=== PATIENT | female | born 1950 | race Caucasian/White ===

== ENCOUNTER 2020-08-01 10:44 | Outpatient (CLI) | payer MEDICARE, OTHER, SELFPAY ==
--- NOTE | 2020-08-01 10:53 | MM_ITS ---
WS: [id number] BILATERAL SCREENING MAMMOGRAM WITH RODOLFO DISPLACEMENT VIEWS. CAD PERFORMED. HISTORY: SCREENING COMPARISON: 2018 and 08/27/2010 Bilateral craniocaudal and mediolateral like views are performed. Rodolfo displacement views in CC and MLO projection also performed. Breasts composition: There are scattered areas of fibroglandular density. Implants are heavily calcified. There are additional benign coarse calcifications within each breast. No suspicious mass or calcification identified on the displacement views. MM/[id number] IMPRESSION: BI-RADS: 2-Benign FOLLOW-UP: 1 Year Follow-up
== END 2020-08-01 10:45 | disposition home or self-care (01) ==
LOC: RADSHAW 10:48
PROVIDERS: PCP Nurse Practitioner; Visit Provider Nurse Practitioner
DX: Z12.31 Encounter for screening mammogram for malignant neoplasm of breast (principal)
CPT/HCPCS: 77067

== ENCOUNTER 2023-10-28 07:46 | Emergency (ER) | payer MEDICARE, OTHER, SELFPAY ==
[2023-10-28 07:52] VITALS: BP 155/57; PULSE 67; RESP 18; O2SAT 98; BMI 20.9
--- NOTE | 2023-10-28 07:56 | XR_ITS ---
WS: [id number] Left wrist, 3 views, 10/28/2023 Clinical Data: pain Comparison: None. Findings: There is an impacted fracture of the distal left radius at the diametaphyseal junction. There is slig ht dorsal displacement of the fracture fragment. There is a simple fracture of the ulnar styloid. The carpal bones are intact. There is soft tissue swelling about the fractures. XR/XR wrist LT min 3V* [id number] Impression: 1. Impacted fracture distal left radius 2. Simple fracture left ulnar styloid..
[2023-10-28 07:57] VITALS: BP 155/57; PULSE 67; RESP 18; TEMP 36.4; O2SAT 98
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
[2023-10-28 09:01] VITALS: BP 152/69; PULSE 68; RESP 16; O2SAT 100
--- NOTE | 2023-10-28 14:26 | DCPLANNER ---
messaged ortho for er f/u
== END 2023-10-28 09:02 | disposition home or self-care (01) ==
PROVIDERS: Emergency Provider Family Medicine; PCP Nurse Practitioner
DX: S52.502A Unspecified fracture of the lower end of left radius, initial encounter for closed fracture (principal); S52.612A Displaced fracture of left ulna styloid process, initial encounter for closed fracture; W22.8XXA Striking against or struck by other objects, initial encounter
CPT/HCPCS: 29125; 73110; 99283

== ENCOUNTER → 2023-11-01 14:34 | Outpatient (BNVA) | payer MEDICARE, OTHER, SELFPAY | PROVIDERS: PCP Nurse Practitioner; Visit Provider Orthopaedic Surgery | DX: S52.502A Unspecified fracture of the lower end of left radius, initial encounter for closed fracture (principal); X58.XXXA Exposure to other specified factors, initial encounter | CPT/HCPCS: 73110; 99203 ==

== ENCOUNTER 2023-11-03 12:48 | Outpatient (CLI) | payer MEDICARE, OTHER, SELFPAY | END 2023-11-03 12:49 | disposition home or self-care (01) | LOC: SOT 12:52 | PROVIDERS: Visit Provider Orthopaedic Surgery | DX: Z46.89 Encounter for fitting and adjustment of other specified devices (principal); S52.502D Unspecified fracture of the lower end of left radius, subsequent encounter for closed fracture with routine healing; X58.XXXD Exposure to other specified factors, subsequent encounter | CPT/HCPCS: L3984 ==

== ENCOUNTER → 2023-11-22 12:46 | Outpatient (BNVA) | payer MEDICARE, OTHER, SELFPAY | PROVIDERS: Visit Provider Orthopaedic Surgery | DX: M25.539 Pain in unspecified wrist (principal) | CPT/HCPCS: 73110; 99213 ==

== ENCOUNTER → 2023-12-13 12:50 | Outpatient (BNVA) | payer MEDICARE, OTHER, SELFPAY | PROVIDERS: Visit Provider Orthopaedic Surgery | DX: S52.532D Colles' fracture of left radius, subsequent encounter for closed fracture with routine healing (principal); X58.XXXD Exposure to other specified factors, subsequent encounter | CPT/HCPCS: 73110; 99213 ==

== ENCOUNTER → 2024-01-17 12:51 | Outpatient (BNVA) | payer MEDICARE, OTHER, SELFPAY | PROVIDERS: Visit Provider Orthopaedic Surgery | DX: S52.532D Colles' fracture of left radius, subsequent encounter for closed fracture with routine healing (principal); X58.XXXD Exposure to other specified factors, subsequent encounter | CPT/HCPCS: 73110; 99213 ==